=== PATIENT | male | born 2000 | race Caucasian/White ===

== ENCOUNTER 2023-08-17 18:46 | Emergency (ER) | payer OTHER, BC, SELFPAY ==
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
[2023-08-17 18:48] VITALS: BP 167/106; PULSE 114; RESP 18; TEMP 37.1; O2SAT 98
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
[2023-08-17] MEDS: ACETAMINOPHEN 500 MG TABLET 1000 MG PO (21:54)
[2023-08-18 00:08] VITALS: BP 141/93; PULSE 94; RESP 18; O2SAT 100
== END 2023-08-18 00:09 | disposition home or self-care (01) ==
PROVIDERS: Emergency Provider Physician Assistant; PCP Internal Medicine Endocrinology, Diabetes & Metabolism
DX: S16.1XXA Strain of muscle, fascia and tendon at neck level, initial encounter (principal); S89.92XA Unspecified injury of left lower leg, initial encounter; E27.1 Primary adrenocortical insufficiency; V49.50XA Passenger injured in collision with unspecified motor vehicles in traffic accident, initial encounter
CPT/HCPCS: 70450; 72125; 73562; 99284; A9270

== ENCOUNTER 2024-03-20 04:16 | Emergency (ER) | payer OTHER, BC, SELFPAY ==
--- NOTE | ~2024-03-20 | CT_ITS ---
EXAMINATION: CT abdomen pelvis w con DATE: 03/20/2024 06:07 INDICATION: Abdominal pain. TECHNIQUE: Computed tomography (CT) of the abdomen and pelvis was performed with 100 mL Omnipaque 350 intravenous contrast. Automated exposure control and iterative reconstruction technique were employe d. The dose-length product was 1684.54 mGy-cm. COMPARISON: None. FINDINGS: The visualized portions of lung bases are clear without pneumonia or pleural effusion. The heart size is normal. No pericardial effusion. There is diffuse hepatic steatosis. The gallbladder, s pleen, pancreas, adrenal glands, and kidneys are normal. There is liquid stool in the colon suggestin g diarrhea. The appendix is normal. There are no pathologically enlarged lymph nodes. There is no keegan e intraperitoneal fluid. There is mild lumbar spondylosis. IMPRESSION: 1. Diffuse hepatic steatosis. Reviewed, dictated and finalized at [facility].
--- NOTE | 2024-03-20 04:28 | ED.GENADULT ---
HPI - General Adult General Chief complaint: Abdominal Pain Stated complaint: epigastric pain Time Seen by Provider: 03/20/24 04:22 History of Present Illness HPI narrative: patient with 3-year-old gentleman who presents emergency department with chief complaint of epigastric pain. Patient has prior history of [place]'s reports that he takes prednisone daily patient reports that he started having pain in the epigastric region the patient reports had some nausea and has had diarrhea. Patient denies fever Related Data Allergies Allergy/AdvReac Type Severity Reaction Status Date / Time No Known Allergies Allergy Verified 08/17/23 21:56 Review of Systems Review of Systems: A 10 system review of systems was completed on the patient and is negative except for what is stated in the HPI. Nursing and ancillary documentation was reviewed. [facility] Past Medical History Medical History History of [place]'s disease Social History Social History Substance use: never Exam Narrative: GENERAL: Well-appearing, well-nourished, and in no acute distress. HEAD: Normocephalic, atraumatic. EYES: PERRLA and EOMI. ENT: Nares clear, no rhinorrhea or epistaxis. Mucous membranes moist. NECK: Supple. CHEST: Clear to auscultation. No respiratory distress. HEART: Regular rate and rhythm. No murmur heard. Normal peripheral pulses. ABDOMEN: Soft, tenderness palpation the epigastric and right upper quadrant, nondistended, normal active bowel sounds. EXTREMITIES: Normal range of motion. No edema. SKIN: Warm, dry, no rash. NEURO: No focal deficits. Alert and oriented x3. PSYCH: Normal mood and affect. Course Vital Signs Vital signs: Vital Signs Temperature 36.8 C 03/20/24 04:37 Pulse Rate 77 03/20/24 04:37 Respiratory Rate 15 03/20/24 04:37 Blood Pressure 136/95 H 03/20/24 04:37 Pulse Oximetry 100 03/20/24 04:37 Oxygen Delivery Room Air 03/20/24 04:37 Temperature 36.8 C 03/20/24 04:37 Pulse Rate 78 03/20/24 06:32 Respiratory Rate 14 03/20/24 06:32 Blood Pressure 126/86 03/20/24 06:32 Pulse Oximetry 100 03/20/24 06:32 Oxygen Delivery Room Air 03/20/24 04:37 Medical Decision Making MDM Narrative Medical decision making narrative: differential diagnosis includes gastritis, colitis, diverticulitis, intra-abdominal infection, abscess, UTI laboratory studies were obtained showed normal CBC normal CMP lipase was normal urinalysis showed no evidence UTI patient received IV fluids antiemetics and pain control patient is feeling much better at this time patient will be discharged home. CT scan showed FINDINGS: The visualized portions of lung bases are clear without pneumonia or pleural effusion. The heart size is normal. No pericardial effusion. There is diffuse hepatic steatosis. The gallbladder, spleen, pancreas, adrenal glands, and kidneys are normal. There is liquid stool in the colon suggesting diarrhea. The appendix is normal. There are no pathologically enlarged lymph nodes. There is no free intraperitoneal fluid. There is mild lumbar spondylosis. IMPRESSION: 1. Diffuse hepatic steatosis. Vital Signs Vital Signs: Vital Signs Temperature 36.8 C 03/20/24 04:37 Pulse Rate 77 03/20/24 04:37 Respiratory Rate 15 03/20/24 04:37 Blood Pressure 136/95 H 03/20/24 04:37 Pulse Oximetry 100 03/20/24 04:37 Oxygen Delivery Room Air 03/20/24 04:37 Temperature 36.8 C 03/20/24 04:37 Pulse Rate 78 03/20/24 06:32 Respiratory Rate 14 03/20/24 06:32 Blood Pressure 126/86 03/20/24 06:32 Pulse Oximetry 100 03/20/24 06:32 Oxygen Delivery Room Air 03/20/24 04:37 Lab Data 03/20/24 05:04 03/20/24 05:04 Labs: Lab Results 03/20/24 Range/Units 05:04 WBC 6.9 (4.5-10.0) K/mm
[2024-03-20 04:37] VITALS: BP 136/95; PULSE 77; RESP 15; TEMP 36.8; O2SAT 100
[2024-03-20] MEDS: ONDANSETRON INJ 4 MG/2 ML VIAL IV PUSH (05:13)
[2024-03-20] MEDS: SODIUM CHLORIDE 0.9% IV 1,000 ML 999 ML IV CONT (05:13)
[2024-03-20] MEDS: PANTOPRAZOLE SODIUM IV 40 MG VIAL IV PUSH (05:13)
[2024-03-20 05:25] LABS: Basophils Percent Auto 0.6 % (0.2-1.2); Eosinophils Absolute Auto 0.1 K/mm3 (0-0.3); Eosinophils Percent Auto 1.2 % (0-4.4); Hematocrit 47.5 % (42.0-52.0); Hemoglobin 15.9 g/dL (14.0-18.0); Immature Granulocyte Absolute 0.02 K/mm3 (0.00-0.031); Immature Granulocyte Percent A 0.3 % (0-0.5); Lymphocytes Absolute Auto 2.54 K/mm3 (0.9-3.2); Lymphocytes Percent Auto 36.9 % (18.3-44.2); Mean Corpuscular HGB Conc 33.5 g/dl (32-36); Mean Corpuscular Hemoglobin 26.4 pg (26-34); Mean Corpuscular Volume 78.9 fl (80-100); Mean Platelet Volume 9.1 fl (7.4-10.4); Monocytes Absolute Auto 0.4 K/mm3 (0.1-0.6); Monocytes Percent Auto 6.1 % (2.6-8.5); Neutrophils Absolute Auto 3.8 K/mm3 (1.3-6.7); Neutrophils Percent Auto 54.9 % (45.5-73.1); Platelet Count Result 304 k/mm3 (150-375); Red Blood Count 6.02 M/mm3 (4.6-6.20); Red Cell Distribution Width 11.9 % (11.5-14.5); White Blood Count 6.9 K/mm3 (4.5-10.0)
[2024-03-20 05:29] LABS: Add Urine Microscopic? YES; Appearance Urine Clear (Clear); Bacteria Urine None Seen /hpf; Bilirubin Urine Negative (Negative); Blood Urine Negative (Negative); Color Urine Yellow (Yellow); Glucose Urine UA Negative (Negative); Ketones Urine Negative (Negative); Lactic Acid Reflex 1.2 mmol/L (0.7-2.0); Leukocyte Esterase Ur Negative LEU/UL (Negative); Nitrate Urine Negative (Negative); Non Pathogenic Casts 0-2; Protein Urine Trace mg/dL (Negative); RBC Urine 0-2 /hpf (0-2); Specific Grav Ur 1.029 (1.001-1.035); Squamous Epithelial Cell Urine None Seen /hpf (Few); Urobilinogen Urine 0.2 mg/dL (<2.0); WBC Urine 0-5 /hpf (0-3)
[2024-03-20 05:30] LABS: Alanine Aminotransferase 52 U/L (6-50); Albumin Level 4.5 g/dL (3.5-5.1); Alkaline Phosphatase 46 U/L (38-126); Anion Gap 10 mmol/L (4-12); Aspartate Amino Transferase 31 U/L (17-59); Bilirubin,Total 0.6 mg/dL (0.2-1.3); Blood Urea Nitrogen 15 mg/dL (9-20); Calcium 9.3 mg/dL (8.4-10.2); Carbon Dioxide 26 mmol/L (22-30); Chloride 102 mmol/L (98-107); Estimated CRCL calculation 117 ml/min; Estimated Glomerular Filt Rate > 60; Glucose 101 mg/dL (65-110); Potassium 4.1 mmol/L (3.4-5.0); Sodium 138 mmol/L (137-145)
[2024-03-20 06:32] VITALS: BP 126/86; PULSE 78; RESP 14; O2SAT 100
[2024-03-20 07:37] VITALS: BP 128/78; PULSE 76; RESP 16; TEMP 36.6; O2SAT 100
== END 2024-03-20 07:39 | disposition home or self-care (01) ==
PROVIDERS: Emergency Provider Emergency Medicine; PCP Internal Medicine Endocrinology, Diabetes & Metabolism
DX: R10.13 Epigastric pain (principal); E27.1 Primary adrenocortical insufficiency; K76.0 Fatty (change of) liver, not elsewhere classified
CPT/HCPCS: 36415; 74177; 80053; 81001; 83605; 85025; 96361; 96374; 96375; 99284; J2405; J2470; J7030; Q9967